=== PATIENT | male | born 1980 | race Caucasian/White ===

== ENCOUNTER 2018-06-06 09:53 | Emergency (ER) | payer MEDICAID, SELFPAY ==
[2018-06-06] VITALS (12 sets, daily range): BP systolic 130–145; BP diastolic 73–80; PULSE 77–137; RESP 12–36; TEMP 37.2–37.4; O2SAT 91–97
--- NOTE | 2018-06-06 10:02 | DI.CT_ITS ---
SYMPTOMS/DIAGNOSIS: ACUTE HEADACHE, ACUTE CONFUSION, HYPERTENSIVE CRANIAL CT: A noncontrast enhanced examination was performed. There is no evidence of an intra or extra-axial hemorrhage, mass or fluid collection. The bahrdwaj/white matter differentiation is intact. The ventricles are normal. There is no evidence of a skull fracture. The paranasal sinuses are normal. There is no evidence of a mastoid effusion. SUMMARY: No acute intracranial abnormality is demonstrated. CTA OF THE NECK AND HEAD: CT angiography was performed with multi slice acquisition and multi planar and 3D reconstruction. The examination was carried out according to the usual protocol with an intravenous administration of 85 cc's of Omnipaque 350. The carotid arteries are normal. The anterior, middle and posterior cerebral arteries as visualized appear intact. The vertebrobasilar system appears intact. SUMMARY: Negative CTA of the neck and head.
--- NOTE | 2018-06-06 10:13 | ED.GENADUL_ITS ---
Discharge Plan Disposition Patient Disposition: HOME Condition: Good Discharge Details Chief Complaint: AMS/LOC Clinical Impression: Conversion disorder, Transient amnesia, Panic attack Primary Care Provider: MAJO NICOLE ED Provider: Sukhdeep Cadet Home Meds and New Rx's Prescriptions: No Action methadone 10 mg/mL Concentrate 90 mg PO DAILY RF: 0 Discharge Instructions Instructions: Panic Attack (ED) Additional Instructions: Please follow-up promptly with your primary care provider on Sunday morning, will be contacted by our mental health specialist for close follow-up next week. Please have a low threshold for prompt return, if you notice any worsening of your symptoms, or any new symptoms such as vomiting, diarrhea, fever, chills, shortness of breath, chest pain, numbness, weakness, or fainting , confusion, altered mental status, amnesia, please return immediately to the emergency department for reevaluation. Please follow up with your primary care provider as soon as possible for reassessment and reevaluation. As always, it was a pleasure participating in your medical care today. Referrals: MAJO NICOLE [Primary Care Provider] - Medical Decision Making This is a 38-year-old male who presents via EMS for panic attack. He was a witness at the local court house. Per EMS he had a panic attack, refused Ativan, came here to the ER. Upon his arrival he was in a slightly catatonic state initially, but then began talking shortly thereafter, at this time he was confused, did not know the year, or other significant pertinent events. Initial physical exam demonstrates minimal abrasion over the forehead, but no evidence of significant trauma or significant neurologic abnormality although the patient does appear confused. The patient was complaining of a headache, but she has no signs of significant nuchal rigidity or meningitis. Shortly thereafter the arrived, his confusion was highlighted even more at that time. She adds to the clinical history and states that he passed out multiple times in the court room, and hit his head multiple times as well. She also states that he has a history of bipolar and yariel, states that he has had episodes similar to this in the past but never this bad with this significant confusion. The denies that he had any complaints of fever, chills, or significant headache prior to the court room incident. She denies any confusion before but does note that he was notably stressed and anxious and nervous over the last few days for this court hearing. The states that he refuses all medications on a regular basis, does not take any medications for this yariel or bipolar. He does occasionally smoke marijuana, but aside for this and methadone she states he has no other meds. Differential is broad and includes traumatic intracranial injury, stress- induced psychosis or conversion, yariel or bipolar, intracranial aneurysm is unlikely but on the differential due to his stress episode and suspected notably elevated blood pressure, and intracranial bleed is suspected secondary to his multiple falls. Patient does not show clinical signs of meningitis on exam, with no fever I doubt encephalitis or signs of vesicles or rash I doubt encephalitis. We will evaluate for other acute pathologies, rehydrate the patient reassessed. 12: 39 Patient's EKG is benign, WBC count is elevated, CT of the head and neck, including noncontrast CT of the head demonstrates no acute process or bleed. Urine drug screen is positive for methadone and THC which the patient and his readily admits to him using on a regular basis. Patient continues to have a mild headache, repeat exam he has worsening of his neck pain with flexion of his hips, differential certainly does include an acute infectious etiology. However with his workup returning am concerned that there might certainly be a psychiatric component more so. With the patient's neck pain headache and other symptoms a lumbar puncture was performed, no complication, the patient tolerated the procedure very well. We did get consent from both his and he. Pending results at this time. I did contact neurology and spoke with Dr. Solitario, I reviewed the case with her, and at this time she does still feel that this may be a psychosis or conversion disorder. The patient continues to be in a mental state that appears to be stuck in 1996. He is no recollection of who Ronnell Longo is, Avery [place], or Y2K. He has understanding and insight acknowledging that his memory is not congruent with what we are saying, however he has no recollection of anything past 1996. Pending LP results, I do feel that the patient would benefit from admission for resolution of his symptoms. I do not feel that this is clinically consistent with transient global amnesia as he does have good insight. Pending LP results we will contact the hospitalist for admission. Recommend psychiatric consult. 1:42 LP results have returned, there is no evidence of meningitis, no significant elevation in WBCs, glucose and protein are normal, results are inconsistent with bacterial or viral meningitis. We did contact the hospitalist and discussed admission, he agrees, the patient agreed initially too, and then on my reassessment roughly 20 minutes later the patient had a complete resolution of his symptoms, he knows all the current videogaHu[employer]y systems, year, important political and social players in today's world. On neurologic reassessment he continues to show no signs of neurologic deficit. The patient feels very well, has no homicidal or suicidal ideations. His mentation is normal and his states that he is back at his baseline. She is very thankful for the care pr ovided here, but he is asking to go home. He feels that he does have an aversion to hospitals in general, stating he would not be beneficial as he has resolution of his symptoms. I did very long and thorough discussion with the patient and his who is at bedside, of note he does acknowledge that he is to her now and recalls multiple previous memories. Through shared decision making process and respecting the wishes of the patient and family, do feel that it is reasonable. We have mandated close follow-up, as well as a low threshold for return. Patient will be following up with his PCP on Sunday, and we will get mental health consult for the patient within the week. With a normal neurologic exam, benign workup, he had a complete resolution of his symptoms I feel it is reasonable for discharge home, with the patient having an excellent understanding of the risks and benefits of this. I have extensively reviewed the treatment plan and discharge instructions with the patient and their family. I have addressed all patient concerns at this time. The patient and family was made aware of what symptoms to monitor for that would warrant a return to the emergency department. Discussed the plan with the patient and family, they demonstrate verbal understanding and agreement with our assessment and plan at this time. Diagnosis conversion disorder EKG 10: 10 Rate 111, intervals normal, sinus tachycardia, no significant ST elevation or depression, mild peaking of T waves in V2 and V3 Procedure: Lumbar Puncture Indication: Altered Mental Status/Headache A time-out was completed verifying correct patient, procedure, site, positioning, and special equipment if applicable. The patient was placed in the LEFT lateral decubitus position in a semi- position with help from the nursing staff. The area was cleansed and draped in usual sterile fashion. 1% lidocaine was used anesthetize the surrounding skin area. A 22-gauge 3.5-inch spinal needle was placed in the L4-L5 interspace. Clear cerebral spinal fluid was obtained. Four tubes were filled with 4 mL of CSF. These were sent for the usual tests, including 1 tube to be held for further analysis if needed. Estimated Blood Loss: 1ml The patient tolerated the procedure well and there were no complications. CRANIAL CT: A noncontrast enhanced examination was performed. There is no evidence of an intra or extra-axial hemorrhage, mass or fluid collection. The bhardwaj/white matter differentiation is intact. The ventricles are normal. There is no evidence of a skull fracture. The paranasal sinuses are normal. There is no evidence of a mastoid effusion. SUMMARY: No acute intracranial abnormality is demonstrated. CTA OF THE NECK AND HEAD: CT angiography was performed with multi slice acquisition and multi planar and 3D reconstruction. The examination was carried out according to the usual protocol with an intravenous administration of 85 cc's of Omnipaque 350. The carotid arteries are normal. The anterior, middle and posterior cerebral arteries as visualized appear intact. The vertebrobasilar system appears intact. SUMMARY: Negative CTA of the neck and head. HPI General Date/Time Provider Initiated Documentation: 06/06/18 09:54 . HPI Narrative: This is a 38-year-old male with no significant past medical history who does take methadone, who presents today for evaluation of panic attack. The patient was a witness at the local court house, while in 1 of the containment rooms he had a panic attack, he refused Ativan at the time, EMS did bring him to the ER. Upon arrival to the ER the patient adopted somewhat of a catatonic state. He is confused, does not know what year it is, does complain of a headache, but certainly does not appear overly anxious. EMS states that this is an acute change that occurred while they were arriving at the ER. Patient has no other complaints. He denies any history of schizophrenia, current IV or illicit drug use, mental disorder, or medical history in general. Patient has no other complaints at this time. He denies taking any substances at the court house or recently. He denies any alcohol use. He denies any recent surgeries. Related Data Home Medications Medication Instructions Recorded Confirmed methadone 90 mg PO DAILY 06/06/18 06/06/18 Allergies Allergy/AdvReac Type Severity Reaction Status Date / Time No Known Allergies Allergy Unverified 06/06/18 10:11 General Stated Complaint: AMS/LOC KAYLENE: 2 Review of Systems Review of Systems All systems reviewed & are unremarkable except as noted in HPI and below PFSH Social History Smoking/Tobacco Use Status: Current every day Tobacco Type: cigarettes Alcohol Intake: never Drug use: Daily Substance use type: marijuana Exam Narrative Exam Narrative: 1.Const: Well-nourished, Well-developed, appearing stated age 2.Eyes: PERRL, no conjunctival injection, and symmetrical lids. 3.ENT: Atraumatic external nose and ears. Moist MM. Neck: Symmetric, trachea midline, No thyromegaly. There is no evidence of raccoon eyes, salazar sign, CSF rhinorrhea, mastoid tenderness, cranial crepitus, hemotympanum, exophthalmos, or hyphema. Small abrasion noted over the forehead. Patient demonstrates intact dentition with no signs of tooth avulsion or fracture, no signs of jaw deformity, no evidence of a LeFort's fracture, with an intact palate, nose and orbital region. There is no evidence of a nasal septal hematoma. No proptosis. Jaw closes symmetrically. Airway is clear. Patient demonstrates good movement of cervical neck. There is no nuchal rigidity, no nuchal tenderness. Patient is able to flex the neck without any difficulty or significant pain. Negative Kernig's and Brudzinski sign. 4.CVS: +S1/S2, No murmurs or gallops. Peripheral pulses 2+ and equal in all extremities. Brisk capillary refill in all extremities. 5.RESP: Unlabored respiratory effort. Clear to auscultation bilaterally. No wheezes rales or rhonchi 6.GI: Soft, Nontender/Nondistended, No hepatosplenomegaly. No guarding or rebound. 7.MSK: Normocephalic/Atraumatic, Extremities w/o deformity or ttp No cyanosis or clubbing, Normal movement of all extremities 8.Skin: Warm, Dry. No rashes or lesions. 9.Neuro: chief controller II-XII grossly intact. Sensation grossly intact, no focal neurologic deficits. All 6 cardinal planes of vision are fully intact. No evidence of rotatory or vertical nystagmus. The patient demonstrated a normal cebwls-hjsb-wouzcx, good dexterity. There was no evidence of dysdiadochokinesia. Patient was able to ambulate without difficulty. There was no wide-based gait. [id number] normal on testing. Sensation was intact bilaterally as well as muscle strength bilaterally for all extremities. Patient was able to verbalize butter cup with no slurring, or miss pronunciation. 10.Psych: (AAO) x1, patient is confused and thinks it is 1996. His is at bedside and he thinks that she is his jacquard card lacer (whom she was years ago, but is now his ). He does not appear overly anxious, he has no pressured speech. Is able to verbalize all words well. Course Vital Signs Temperature 37.4 C 06/06/18 09:55 Pulse 99 H 06/06/18 09:55 Respiratory Rate 14 06/06/18 09:55 Blood Pressure 138/78 06/06/18 09:55 Pulse Oximetry 94 L 06/06/18 09:55 Temperature 37.4 C 06/06/18 09:55 Temperature Source Temporal Artery Scan 06/06/18 09:55 Pulse 99 H 06/06/18 09:55 Respiratory Rate 14 06/06/18 09:55 Blood Pressure 138/78 06/06/18 09:55 Blood Pressure Position Sitting 06/06/18 09:55 Pulse Oximetry 94 L 06/06/18 09:55 Oxygen Delivery Method Room Air 06/06/18 09:55 Oxygen Flow Rate 0 06/06/18 09:55 Pain Level 0 06/06/18 09:55
[2018-06-06 10:19] LABS: BE (Venous) 1.6 mmol/L (-3-3); HCO3 (Venous) 27 mmol/L (22-28); O2 Sat (Venous) 65 % (70-80); TCO2 (Venous) 24 mmol/L (22-29); pCO2 (Venous) 44 mm/Hg (34-47); pH (Venous) 7.39 (7.32-7.43); pO2 (Venous) 32 mm/Hg (28-44)
[2018-06-06 10:22] LABS: Abs Immature Grans 0.06 k/cumm (0.0-0.09); Absolute Basophil Count 0.03 k/cumm (0.0-0.2); Absolute Eosinophil Count 0.03 k/cumm (0.0-0.7); Absolute Lymphocyte Count 1.99 k/cumm (1.2-3.4); Absolute Monocyte Count 0.77 k/cumm (0.11-0.7); Absolute Neutrophil Count 13.55 k/cumm (1.2-6.7); Basophils % 0.2; Eosinophils % 0.2; HCT 44.5 % (40.0-50.0); HGB 15.1 g/dL (13.5-17.5); Immature Grans % 0.4; Lymphocytes % 12.1; Mean Corp. HGB Concentration 33.9 g/dL (32.0-36.0); Mean Corpuscular Hemoglobin 28.8 pg (27.0-33.0); Mean Corpuscular Volume 84.8 fL (80-95); Mean Platelet Volume 10.2 fL (8.0-11.0); Monocytes % 4.7; Neutrophils % 82.4; Platelet Count 376 x1000/uL (130-400); RBC 5.25 m/cumm (4.50-6.00); RBC Distribution Width 13.3 % (11.8-14.1); White Blood Cell Count 16.45 k/cumm (4.4-10.8)
[2018-06-06] MEDS: Omnipaque 350 MG/ML 100 ML BTL IJ (10:39)
[2018-06-06] MEDS: Acetaminophen 500 MG TAB 1000 MG PO (10:41)
[2018-06-06 10:44] LABS: Salicylate 6.1 mg/dL (2.8-20.0)
[2018-06-06 10:45] LABS: ALT 21 U/L (12-78); AST 17 U/L (15-37); Albumin 4.6 g/dL (3.4-5.0); Alkaline Phosphatase 76 U/L (46-116); Anion Gap 13.4 mmol/L (3-11); BUN 13 mg/dL (7-18); Bilirubin, Total 0.3 mg/dL (0.2-1.0); CO2 24.6 mmol/L (21.0-32.0); CREATININE 0.93 mg/dL (0.70-1.30); Calcium 9.5 mg/dL (8.5-10.1); Chloride 102 mmol/L (98-107); Glucose 145 mg/dL (70-100); Potassium 3.9 mmol/L (3.5-5.1); Sodium 140 mmol/L (136-145); Total Protein 7.8 g/dL (6.4-8.2)
[2018-06-06] MEDS: Normal Saline 1,000 ML 1000 ML IV ×2 (10:48→11:22)
[2018-06-06 10:49] LABS: Ammonia < 10 umol/L (11-32)
[2018-06-06 10:56] LABS: Acetaminophen < 2 ug/mL (10-30); ETHANOL BLOOD < 3.0 mg/dL (<3)
[2018-06-06 11:20] LABS: *AMPHETAMINES SCREEN URINE Negative (Negative); *BARBITURATES SCREEN URINE Negative (Negative); *BENZODIAZEPINES SCREEN URINE Negative (Negative); Cannabinoids THC POSITIVE (Negative); Cocaine Screen,Urine Negative (Negative); METHADONE URINE SCREEN POSITIVE (Negative); OPIATES URINE SCREEN Negative (Negative)
[2018-06-06 11:25] LABS: Tricyclic Antidepressants Negative (Negative)
[2018-06-06] MEDS: LORazepam 2 MG/ML VIAL (12:15)
[2018-06-06 13:14] LABS: Clarity Clear; RBC 0 /mm3 (0-5); Tube # 4; WBC 1 /mm3 (0-5); Xanthochromia Absent
[2018-06-06 13:22] LABS: Total Protein (CSF) 23 mg/dL (15-45)
[2018-06-06 13:39] LABS: Glucose (CSF) 81 mg/dL (40-70)
--- NOTE | 2018-06-07 08:14 | PDOC.ERCMPRO ---
Care Management Progress Note 06/07-Dr. Cadet requested assistance with a PCP f/u ([facility]) in one week for AMS. Dr. Cadet also requesting assistance with a f/u for psychiatry. Called [facility] and spoke with Meena. Meena scheduled Jeb for Sunday, 06/14 at 2:[address] Dea Mireles (Dr. Hamlin is out of office). Meena stated that they would scheduled Jeb to see their behavioral health specialist as well as their new psychiatric nurse practitioner. Called and left message on Jeb's phone for the f/u appt.
--- NOTE | 2018-06-07 08:17 | CMPROGNOTE_ITS ---
Care Management Progress Note 06/07-Dr. Cadet requested assistance with a PCP f/u ([facility]) in one week for AMS. Dr. Cadet also requesting assistance with a f/u for psychiatry. Called [facility] and spoke with Meena. Meena scheduled Jeb for Sunday, 06/14 at 2:[address] Dea Mireles (Dr. Hamlin is out of office). Meena stated that they would scheduled Jeb to see their behavioral health specialist as well as their new psychiatric nurse practitioner. Called and left message on Jeb's phone for the f/u appt.
[2018-06-07 15:03] LABS: VDRL, CSF Negative (Negative)
[2018-06-08 22:04] LABS: Cytomegalovirus PCR Negative (Negative); Specimen Source CSF
[2018-06-09 17:56] LABS: Adenovirus PCR Negative (Negative); Specimen Source CSF
[2018-06-10 12:56] LABS: Result Negative (Negative); Specimen Source CSF
[2018-06-10 23:52] LABS: Specimen Source CSF; West Nile Virus PCR Negative (Negative)
== END 2018-06-06 14:40 | disposition home or self-care (01) ==
PROVIDERS: Emergency Provider Student in an Organized Health Care Education/Training Program; PCP Family Medicine
DX: F44.9 Dissociative and conversion disorder, unspecified (principal); G45.4 Transient global amnesia; F41.9 Anxiety disorder, unspecified
CPT/HCPCS: 36415; 70496; 70498; 80053; 80307; 82805; 82945; 87116; 87206; 87798; 87799; 89050; 89051; 93005; 96361; 96374; 99285; 70450; 80320; 80329; 82140; 84157; 85025; 86592; 87070; 87205; 87496; 93010; J2060; J3490

== ENCOUNTER 2018-06-10 08:30 | Emergency (ER) | payer MEDICAID, SELFPAY ==
[2018-06-10 08:33] VITALS: BP 150/96; PULSE 93; RESP 20; TEMP 36.8; O2SAT 98
[2018-06-10 08:40] VITALS: RESP 20
--- NOTE | 2018-06-10 10:50 | W.ED.GENAD ---
Discharge Plan Disposition Patient Disposition: HOME Condition: Stable Discharge Details Chief Complaint: AMS/LOC Clinical Impression: Concussion Primary Care Provider: MAJO NICOLE ED Provider: Ciarra West Home Meds and New Rx's Prescriptions: New divalproex [Depakote] 250 mg tablet,delayed release (DR/EC) 250 mg PO BID Qty: 13 RF: 0 divalproex [Depakote] 500 mg tablet,delayed release (DR/EC) 500 mg PO BID Qty: 14 RF: 0 Continued methadone 10 mg/mL Concentrate 90 mg PO DAILY RF: 0 Discharge Instructions Instructions: Concussion (ED) Additional Instructions: Please return immediately to the emergency department if you develop any new or worsening symptoms or if you become otherwise concerned. It is extremely important that you attend your scheduled appointment with your primary care doctor this Sunday as planned, and also that she make an appointment to be seen by a neurologist as soon as possible as well. Referrals: MAJO NICOLE [Primary Care Provider] - Barbara Branch MD [[facility] STAFF PHYSICIAN] - Medical Decision Making Jeb Noriega is a 38-year-old man with history of bipolar, PTSD, anxiety who presented to the emergency department with personality changes after being seen here for apparent anxiety related syncope and subsequent head injury. On exam patient is well and nontoxic appearing. His speech is very mildly pressured, but otherwise psychiatric exam is normal. Neurologic exam is nonfocal. Patient without headache or other somatic complaints. Concern for likely postconcussion related symptoms. Exam/history is not consistent with acute intracranial emergency, toxic/metabolic etiology, infection, suicidality, risk to self or others I reviewed the patient's chart and did discuss the patient presentation results with Dr. Solitario of neurology, who agreed that percentage personality changes are likely related to concussion and patient with baseline mental health problems. She recommended Depakote 250 mg twice daily for 1 week followed by 500 mg twice daily, as well as outpatient follow-up with PCP, neurology, and mental health. Patient reports that he has an appointment with his PCP on 06/14, with plan to schedule mental health visit as facilitated by his PCP. Patient placed on list for neurology outpatient follow-up. I had a lengthy discussion with the patient regarding return to emergency department precautions, and importance of outpatient follow-up with his PCP, mental health, neurology. Patient verbalized understanding of the plan and was amenable, as was his . All questions were answered. Medical Records Medical records reviewed: Yes I reviewed the patient's medical records. HPI General Mode of arrival: ambulatory. Date/Time Provider Initiated Documentation: 06/10/18 08:44. Limitations to Documentation: no limitations. Information obtained by: patient, family, RN notes reviewed and old records reviewed. HPI Narrative: Jeb Noriega is a 38-year-old man with history of bipolar disorder, PTSD presenting to the emergency department with personality change. Patient is accompanied by his who also provides a history. Patient was seen here 06/06/18 for evaluation. Patient has report that patient has a history of anxiety attacks,, and patient had an anxiety attack at home and began hyperventilating, at which point he passed out and his head hit the table in front of him. His loss of consciousness was brief lasting a minute or so, but when he came to he again passed out and hit his head on the table. In the emergency department patient had CT of the head, CTA of the head and neck, all of which were negative. Patient's reports that directly after the episode at home and while he was in the emergency department initially, his personality seemed changed from baseline. He seemed somewhat hyperactive and with different judgment than usual to her, and she reports that he has seemed nothing like himself in terms of personality since the 2 episodes of hitting his head at home. She reports that there has essentially been no change control analyst the past few days, and brought him back for further evaluation. Patient reports that he feels fine, and thinks that he has just been pushing himself too hard. 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 He reports that he was having headaches after discharge in the emergency department, but has had no headache today. He states that he has been eating and drinking as usual without vomiting. He denies having any pain, fevers, rash, focal weakness. Patient reports that he feels somewhat nervous and anxious, but otherwise feels at baseline. He states that his sleep has been normal. His reports that she is not afraid for his safety, and he has not seemed to be a risk to himself or to others. She denies any aggression. Patient denies suicidality or homicidality. No hallucinations. Patient reports that she has never seen him in his current state of mind in the past. Related Data Home Medications Medication Instructions Recorded Confirmed methadone 90 mg PO DAILY 06/06/18 06/10/18 divalproex [Depakote] 250 mg PO BID #13 tab 06/10/18 divalproex [Depakote] 500 mg PO BID #14 tab 06/10/18 Previous Rx's Medication Instructions Recorded divalproex [Depakote] 250 mg PO BID #13 tab 06/10/18 divalproex [Depakote] 500 mg PO BID #14 tab 06/10/18 Allergies Allergy/AdvReac Type Severity Reaction Status Date / Time No Known Allergies Allergy Unverified 06/10/18 08:40 General Stated Complaint: AMS/LOC KAYLENE: 2 Review of Systems Review of Systems Constitutional: denies fevers Eyes: denies eye pain ENT: denies facial pain, dental pain, sore throat Cardiovascular: denies chest pain Respiratory: denies SOB, cough GI: denies abdominal pain, vomiting, diarrhea : denies flank pain MSK: denies back pain, neck pain, arthralgias, myalgias Skin: denies rash Neuro: denies headaches, numbness, weakness Psych: Denies suicidality, homicidality, hallucinations [facility] Medical History Head injury with loss of consciousness (Acute) Post traumatic stress disorder (Acute) Anxiety (Chronic) Bipolar disorder (Chronic) Social History Smoking/Tobacco Use Status: Current every day Tobacco Type: cigarettes Alcohol Intake: never Drug use: Daily Substance use type: former substance user and marijuana Exam Narrative Exam Narrative: Constitutional: well and [id number], pleasant, speech is mildly pressured but otherwise conversing normally HENT: head atraumatic/normocephalic/normal inspection, mucous membranes moist Eyes: conjunctiva normal, sclera normal, pupils 3mm b/l, equal and reactive to light and accommodation, extraocular movements intact, no nystagmus Neck: no stridor, normal ROM, trachea midline Chest: normal inspection Resp: normal work of breathing, LCTAB Cardio: normal rate, normal rhythm, no murmur appreciated Back: normal inspection, no rash Skin: warm, dry, normal color, no rash Neuro: alert and oriented x3, cranial nerves II through XII intact, motor 5 out of 5 throughout, normal gait, normal tone Ext: no edema Psych: Somewhat anxious mood, normal affect, normal behavior, no apparent hallucinations, no suicidality Course Vital Signs Temperature 36.8 C 06/10/18 08:33 Pulse 93 H 06/10/18 08:33 Respiratory Rate 20 06/10/18 08:33 Blood Pressure 150/96 H 06/10/18 08:33 Pulse Oximetry 98 06/10/18 08:33 Temperature 36.8 C 06/10/18 08:33 Temperature Source Temporal Artery Scan 06/10/18 08:33 Pulse 93 H 06/10/18 08:33 Respiratory Rate 20 06/10/18 08:40 Respiratory Effort Non-Labored 06/10/18 08:40 Respiratory Depth Normal 06/10/18 08:40 Respiratory Pattern Normal 06/10/18 08:40 Blood Pressure 150/96 H 06/10/18 08:33 Blood Pressure Position Sitting 06/10/18 08:33 Pulse Oximetry 98 06/10/18 08:33 Oxygen Delivery Method Room Air 06/10/18 08:33 Oxygen Flow Rate 0 06/10/18 08:33 Pain Level 0 06/10/18 08:33
[2018-06-10] MEDS: LORazepam 1 MG TAB PO (11:16)
--- NOTE | 2018-06-10 11:24 | ED.GENADUL_ITS ---
Discharge Plan Disposition Patient Disposition: HOME Condition: Stable Discharge Details Chief Complaint: AMS/LOC Clinical Impression: Concussion Primary Care Provider: MAJO NICOLE ED Provider: Ciarra West Home Meds and New Rx's Prescriptions: New divalproex [Depakote] 250 mg tablet,delayed release (DR/EC) 250 mg PO BID Qty: 13 RF: 0 divalproex [Depakote] 500 mg tablet,delayed release (DR/EC) 500 mg PO BID Qty: 14 RF: 0 Continued methadone 10 mg/mL Concentrate 90 mg PO DAILY RF: 0 Discharge Instructions Instructions: Concussion (ED) Additional Instructions: Please return immediately to the emergency department if you develop any new or worsening symptoms or if you become otherwise concerned. It is extremely important that you attend your scheduled appointment with your primary care doctor this Sunday as planned, and also that she make an appointment to be seen by a neurologist as soon as possible as well. Referrals: MAJO NICOLE [Primary Care Provider] - Barbara Branch MD [[facility] STAFF PHYSICIAN] - Medical Decision Making Jeb Noriega is a 38-year-old man with history of bipolar, PTSD, anxiety who presented to the emergency department with personality changes after being seen here for apparent anxiety related syncope and subsequent head injury. On exam patient is well and nontoxic appearing. His speech is very mildly pressured, but otherwise psychiatric exam is normal. Neurologic exam is nonfocal. Patient without headache or other somatic complaints. Concern for likely postconcussion related symptoms. Exam/history is not consistent with acute intracranial emergency, toxic/metabolic etiology, infection, suicidality, risk to self or others I reviewed the patient's chart and did discuss the patient presentation results with Dr. Solitario of neurology, who agreed that percentage personality changes are likely related to concussion and patient with baseline mental health problems. She recommended Depakote 250 mg twice daily for 1 week followed by 500 mg twice daily, as well as outpatient follow-up with PCP, neurology, and mental health. Patient reports that he has an appointment with his PCP on 06/14, with plan to schedule mental health visit as facilitated by his PCP. Patient placed on list for neurology outpatient follow-up. I had a lengthy discussion with the patient regarding return to emergency department precautions, and importance of outpatient follow-up with his PCP, mental health, neurology. Patient verbalized understanding of the plan and was amenable, as was his . All questions were answered. Medical Records Medical records reviewed: Yes I reviewed the patient's medical records. HPI General Mode of arrival: ambulatory . Date/Time Provider Initiated Documentation: 06/10/18 08:44 . Limitations to Documentation: no limitations . Information obtained by: patient, family, RN notes reviewed and old records reviewed . HPI Narrative: Jeb Noriega is a 38-year-old man with history of bipolar disorder, PTSD presenting to the emergency department with personality change. Patient is accompanied by his who also provides a history. Bettye funes was seen here 06/06/18 for evaluation. Patient has report that patient has a history of anxiety attacks,, and patient had an anxiety attack at home and began hyperventilating, at which point he passed out and his head hit the table in front of him. His loss of consciousness was brief lasting a minute or so, but when he came to he again passed out and hit his head on the table. In the emergency department patient had CT of the head, CTA of the head and neck, all of which were negative. Patient's reports that directly after the episode at home and while he was in the emergency department initially, his personality seemed changed from baseline. He seemed somewhat hyperactive and with different judgment than usual to her, and she reports that he has seemed nothing like himself in terms of personality since the 2 episodes of hitting his head at home. 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 Patient reports that he feels fine, and thinks that he has just been pushing himself too hard. 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 He reports that he was having headaches after discharge in the emergency department, but has had no headache today. He states that he has been eating and drinking as usual without vomiting. He denies having any pain, fevers, rash, focal weakness. Patient reports that he feels somewhat nervous and anxious, but otherwise feels at baseline. He states that his sleep has been normal. His reports that she is not afraid for his safety, and he has not seemed to be a risk to himself or to others. She denies any aggression. Patient denies suicidality or homicidality. No hallucinations. Patient reports that she has never seen him in his current state of mind in the past. Related Data Home Medications Medication Instructions Recorded Confirmed methadone 90 mg PO DAILY 06/06/18 06/10/18 divalproex [Depakote] 250 mg PO BID #13 tab 06/10/18 divalproex [Depakote] 500 mg PO BID #14 tab 06/10/18 Previous Rx's Medication Instructions Recorded divalproex [Depakote] 250 mg PO BID #13 tab 06/10/18 divalproex [Depakote] 500 mg PO BID #14 tab 06/10/18 Allergies Allergy/AdvReac Type Severity Reaction Status Date / Time No Known Allergies Allergy Unverified 06/10/18 08:40 General Stated Complaint: AMS/LOC KAYLENE: 2 Review of Systems Review of Systems Constitutional: denies fevers Eyes: denies eye pain ENT: denies facial pain, dental pain, sore throat Cardiovascular: denies chest pain Respiratory: denies SOB, cough GI: denies abdominal pain, vomiting, diarrhea : denies flank pain MSK: denies back pain, neck pain, arthralgias, myalgias Skin: denies rash Neuro: denies headaches, numbness, weakness Psych: Denies suicidality, homicidality, hallucinations ON LICENSE OF [facility] Medical History Head injury with loss of consciousness (Acute) Post traumatic stress disorder (Acute) Anxiety (Chronic) Bipolar disorder (Chronic) Social History Smoking/Tobacco Use Status: Current every day Tobacco Type: cigarettes Alcohol Intake: never Drug use: Daily Substance use type: former substance user and marijuana Exam Narrative Exam Narrative: Constitutional: well and [id number], pleasant, speech is mildly pressured but otherwise conversing normally HENT: head atraumatic/normocephalic/normal inspection, mucous membranes moist Eyes: conjunctiva normal, sclera normal, pupils 3mm b/l, equal and reactive to light and accommodation, extraocular movements intact, no nystagmus Neck: no stridor, normal ROM, trachea midline Chest: normal inspection Resp: normal work of breathing, LCTAB Cardio: normal rate, normal rhythm, no murmur appreciated Back: normal inspection, no rash Skin: warm, dry, normal color, no rash Neuro: alert and oriented x3, cranial nerves II through XII intact, motor 5 out of 5 throughout, normal gait, normal tone Ext: no edema Psych: Somewhat anxious mood, normal affect, normal behavior, no apparent hallucinations, no suicidality Course Vital Signs Temperature 36.8 C 06/10/18 08:33 Pulse 93 H 06/10/18 08:33 Respiratory Rate 20 06/10/18 08:33 Blood Pressure 150/96 H 06/10/18 08:33 Pulse Oximetry 98 06/10/18 08:33 Temperature 36.8 C 06/10/18 08:33 Temperature Source Temporal Artery Scan 06/10/18 08:33 Pulse 93 H 06/10/18 08:33 Respiratory Rate 20 06/10/18 08:40 Respiratory Effort Non-Labored 06/10/18 08:40 Respiratory Depth Normal 06/10/18 08:40 Respiratory Pattern Normal 06/10/18 08:40 Blood Pressure 150/96 H 06/10/18 08:33 Blood Pressure Position Sitting 06/10/18 08:33 Pulse Oximetry 98 06/10/18 08:33 Oxygen Delivery Method Room Air 06/10/18 08:33 Oxygen Flow Rate 0 06/10/18 08:33 Pain Level 0 06/10/18 08:33
[2018-06-10] MEDS: Divalproex 250 MG TABEC PO (12:33)
--- NOTE | 2018-06-11 10:21 | PDOC.ERCMPRO ---
Care Management Progress Note 06/11-Dr. Leandra West requested assistance with a neurology f/u, first available, for post concussion. Referral faxed to Neurology this am.
== END 2018-06-10 12:36 | disposition home or self-care (01) ==
PROVIDERS: Emergency Provider Student in an Organized Health Care Education/Training Program; PCP Family Medicine
DX: S06.0X9A Concussion with loss of consciousness of unspecified duration, initial encounter (principal); W18.39XA Other fall on same level, initial encounter; R55 Syncope and collapse; F31.9 Bipolar disorder, unspecified; F43.10 Post-traumatic stress disorder, unspecified; F41.9 Anxiety disorder, unspecified
CPT/HCPCS: 99283

== ENCOUNTER 2019-10-14 02:09 | Outpatient (CLI) | payer MEDICAID, SELFPAY ==
[2019-10-14 08:02] LABS: Platelet Count 327 x1000/uL (130-400)
[2019-10-14 08:14] LABS: VALPROIC ACID 59.6 ug/mL (50-100)
[2019-10-14 08:58] LABS: ALT 21 U/L (16-63); AST 12 U/L (15-37); Albumin 4.2 g/dL (3.4-5.0); Alkaline Phosphatase 54 U/L (46-116); BUN 11 mg/dL (7-18); Bilirubin, Total 0.4 mg/dL (0.2-1.0); CREATININE 0.79 mg/dL (0.70-1.30); Calcium 9.9 mg/dL (8.5-10.1); Chloride 103 mmol/L (98-107); Glucose 117 mg/dL (74-106); Sodium 140 mmol/L (136-145); Total Protein 7.2 g/dL (6.4-8.2)
== END 2019-10-14 02:29 ==
PROVIDERS: PCP Family Medicine; Visit Provider Nurse Practitioner Psychiatric/Mental Health
DX: F25.0 Schizoaffective disorder, bipolar type (principal)
CPT/HCPCS: 36415; 80048; 80076; 80164; 85049

== ENCOUNTER 2020-06-04 10:22 | Outpatient (REF) | payer MEDICAID, SELFPAY ==
[2020-06-04 15:39] LABS: ALT 26 U/L (16-63); AST 15 U/L (15-37); Albumin 4.1 g/dL (3.4-5.0); Alkaline Phosphatase 58 U/L (46-116); Anion Gap 12.4 mmol/L (3-11); BUN 14 mg/dL (7-18); Bilirubin, Direct 0.1 mg/dL (0.0-0.2); Bilirubin, Total 0.4 mg/dL (0.2-1.0); CO2 25.6 mmol/L (21.0-32.0); CREATININE 0.9 mg/dL (0.70-1.30); Calcium 9.3 mg/dL (8.5-10.1); Chloride 103 mmol/L (98-107); Glucose 94 mg/dL (74-106); Potassium 4.5 mmol/L (3.5-5.1); Sodium 141 mmol/L (136-145); Total Protein 7.1 g/dL (6.4-8.2)
[2020-06-04 15:42] LABS: VALPROIC ACID 58.5 ug/mL (50-100)
[2020-06-04 16:35] LABS: Calculated LDL 175 mg/dL (<100); Cholesterol 228 mg/dL (<200); HDL Cholesterol 38 mg/dL (40-60); Triglyceride 79 mg/dL (<150)
[2020-06-04 21:31] LABS: Abs Immature Grans 0.05 10^3/uL (0.0-0.06); Absolute Basophil Count 0.07 10^3/uL (0.0-0.2); Absolute Eosinophil Count 0.16 10^3/uL (0.0-0.7); Absolute Lymphocyte Count 4.05 10^3/uL (1.2-3.4); Absolute Monocyte Count 0.62 10^3/uL (0.1-0.8); Absolute Neutrophil Count 6.72 10^3/uL (1.2-6.7); Basophils % 0.6; Eosinophils % 1.4; HCT 45.2 % (40.0-50.0); HGB 14.7 g/dL (13.5-17.5); Immature Grans % 0.4; Lymphocytes % 34.7; MCH 28.9 pg (27.0-33.0); MCHC 32.5 % (32.0-36.0); MCV 88.8 fL (80-95); MPV 11.1 fL (8.0-11.0); Monocytes % 5.3; Neutrophils % 57.6; Nucleated RBC 0 %; Platelet Count 326 10^3/uL (130-400); RBC 5.09 10^6/uL (4.36-5.78); RDW 13.3 % (11.8-14.1); RDW-SD 43.7 fL; WBC 11.67 10^3/uL (4.4-10.8)
[2020-06-04 22:25] LABS: Diff Comment Agrees w/ Instrument; RBC Morphology Normal
== END 2020-06-04 10:23 | disposition home or self-care (01) ==
LOC: NCHCN 10:22
PROVIDERS: PCP Family Medicine; Visit Provider Nurse Practitioner Family
DX: F25.0 Schizoaffective disorder, bipolar type (principal); F31.10 Bipolar disorder, current episode manic without psychotic features, unspecified; Z51.81 Encounter for therapeutic drug level monitoring; Z79.899 Other long term (current) drug therapy; Z13.220 Encounter for screening for lipoid disorders; D72.829 Elevated white blood cell count, unspecified
CPT/HCPCS: 80053; 80061; 80076; 80164; 85025

== ENCOUNTER 2020-10-26 18:11 | Outpatient (REF) | payer MEDICAID, SELFPAY ==
[2020-10-26 20:46] LABS: ALT 20 U/L (16-63); AST 13 U/L (15-37); Albumin 4.4 g/dL (3.4-5.0); Alkaline Phosphatase 41 U/L (46-116); Anion Gap 10.2 mmol/L (3-11); BUN 17 mg/dL (7-18); Bilirubin, Total 0.4 mg/dL (0.2-1.0); CO2 29.8 mmol/L (21.0-32.0); CREATININE 0.9 mg/dL (0.70-1.30); Calcium 9.2 mg/dL (8.5-10.1); Calculated LDL 156 mg/dL (<100); Chloride 104 mmol/L (98-107); Cholesterol 212 mg/dL (<200); Glucose 62 mg/dL (74-106); HDL Cholesterol 38 mg/dL (40-60); Potassium 4.3 mmol/L (3.5-5.1); Sodium 144 mmol/L (136-145); Total Protein 6.9 g/dL (6.4-8.2); Triglyceride 92 mg/dL (<150)
[2020-10-26 22:23] LABS: VALPROIC ACID 31.8 ug/mL (50-100)
== END 2020-10-26 18:12 | disposition home or self-care (01) ==
LOC: NCHCN ADD 18:11
PROVIDERS: PCP Family Medicine; Visit Provider Nurse Practitioner Family
DX: F31.10 Bipolar disorder, current episode manic without psychotic features, unspecified (principal); F17.210 Nicotine dependence, cigarettes, uncomplicated; F11.11 Opioid abuse, in remission; Z51.81 Encounter for therapeutic drug level monitoring; Z79.899 Other long term (current) drug therapy
CPT/HCPCS: 80053; 80061; 80164

== ENCOUNTER 2022-03-10 10:27 | Outpatient (REF) | payer MEDICAID, SELFPAY ==
[2022-03-10 18:18] LABS: Abs Immature Grans 0.04 10^3/uL (0.0-0.06); Absolute Basophil Count 0.06 10^3/uL (0.0-0.2); Absolute Eosinophil Count 0.17 10^3/uL (0.0-0.7); Absolute Lymphocyte Count 3.57 10^3/uL (1.2-3.4); Absolute Monocyte Count 0.74 10^3/uL (0.1-0.8); Absolute Neutrophil Count 5.32 10^3/uL (1.2-6.7); Basophils % 0.6; Eosinophils % 1.7; HGB 14.8 g/dL (13.5-17.5); Immature Grans % 0.4; Lymphocytes % 36.1; MCH 27.8 pg (27.0-33.0); MCHC 31.5 % (32.0-36.0); MCV 88 fL (80-95); MPV 11.1 fL (8.0-11.0); Monocytes % 7.5; Neutrophils % 53.7; Platelet Count 357 10^3/uL (130-400); RBC 5.33 10^6/uL (4.36-5.78); RDW 12.7 % (11.8-14.1); RDW-SD 41.4 fL
[2022-03-10 18:33] LABS: ALT 36 U/L (16-63); AST 27 U/L (15-37); Albumin 3.9 g/dL (3.4-5.0); Alkaline Phosphatase 80 U/L (46-116); Anion Gap 8.8 mmol/L (3-11); BUN 20 mg/dL (7-18); Bilirubin, Total 0.2 mg/dL (0.2-1.0); CO2 27.2 mmol/L (21.0-32.0); CREATININE 0.8 mg/dL (0.70-1.30); Calcium 9.4 mg/dL (8.5-10.1); Calculated LDL 157 mg/dL (<100); Chloride 105 mmol/L (98-107); Cholesterol 211 mg/dL (<200); Estimated GFR 114.74 (mL/min/1.73m2); Glucose 113 mg/dL (74-106); HDL Cholesterol 39 mg/dL (40-60); Potassium 4.7 mmol/L (3.5-5.1); Sodium 141 mmol/L (136-145); Total Protein 7.3 g/dL (6.4-8.2); Triglyceride 79 mg/dL (<150)
== END 2022-03-10 10:28 | disposition home or self-care (01) ==
LOC: NCHCN 10:27
PROVIDERS: PCP Family Medicine; Visit Provider Nurse Practitioner Family
DX: D72.829 Elevated white blood cell count, unspecified (principal); Z13.220 Encounter for screening for lipoid disorders; Z13.228 Encounter for screening for other metabolic disorders; Z00.00 Encounter for general adult medical examination without abnormal findings
CPT/HCPCS: 80053; 80061; 85025

== ENCOUNTER 2022-11-07 19:45 | Outpatient (REF) | payer MEDICAID, SELFPAY ==
[2022-11-07 21:06] LABS: Abs Immature Grans 0.03 10^3/uL (0.0-0.06); Absolute Basophil Count 0.06 10^3/uL (0.0-0.2); Absolute Eosinophil Count 0.13 10^3/uL (0.0-0.7); Absolute Lymphocyte Count 4.51 10^3/uL (1.2-3.4); Absolute Monocyte Count 0.63 10^3/uL (0.1-0.8); Absolute Neutrophil Count 5.69 10^3/uL (1.2-6.7); Basophils % 0.5; Eosinophils % 1.2; HCT 44.2 % (40.0-50.0); HGB 14.7 g/dL (13.5-17.5); Immature Grans % 0.3; Lymphocytes % 40.8; MCH 28.7 pg (27.0-33.0); MCHC 33.3 % (32.0-36.0); MCV 86 fL (80-95); MPV 11.2 fL (8.0-11.0); Monocytes % 5.7; Neutrophils % 51.5; Platelet Count 297 10^3/uL (130-400); RBC 5.13 10^6/uL (4.36-5.78); RDW 12.9 % (11.8-14.1); RDW-SD 40.6 fL; WBC 11.05 10^3/uL (4.4-10.8)
[2022-11-07 21:25] LABS: TSH (W/Ref FT4) 1.45 uIU/mL (0.36-3.74)
== END 2022-11-07 19:46 | disposition home or self-care (01) ==
LOC: NCHCN 19:45
PROVIDERS: PCP Family Medicine; Visit Provider Family Medicine
DX: R53.83 Other fatigue (principal)
CPT/HCPCS: 84443; 85025

== ENCOUNTER 2023-11-06 14:48 | Outpatient (REF) | payer MEDICAID, SELFPAY ==
[2023-11-06 18:10] LABS: ALT 32 U/L (16-63); AST 19 U/L (15-37); Albumin 4.3 g/dL (3.4-5.0); Alkaline Phosphatase 59 U/L (46-116); Anion Gap 8.4 mmol/L (3-11); BUN 16 mg/dL (7-18); Bilirubin, Total 0.21 mg/dL (0.2-1.0); CO2 29.6 mmol/L (21.0-32.0); CREATININE 0.9 mg/dL (0.70-1.30); Calcium 9.4 mg/dL (8.5-10.1); Calculated LDL 160 mg/dL (<100); Chloride 103 mmol/L (98-107); Cholesterol 211 mg/dL (<200); Estimated GFR 110.04 (mL/min/1.73m2); Glucose 105 mg/dL (74-106); HDL Cholesterol 43 mg/dL (40-60); Potassium 4.5 mmol/L (3.5-5.1); Sodium 141 mmol/L (136-145); Total Protein 7.3 g/dL (6.4-8.2); Triglyceride 44 mg/dL (<150)
[2023-11-10 16:35] LABS: Testosterone, Total 596 ng/dL (240-950)
== END 2023-11-06 14:49 | disposition home or self-care (01) ==
LOC: NCHCN 14:48
PROVIDERS: PCP Family Medicine; Visit Provider Family Medicine
DX: Z79.899 Other long term (current) drug therapy (principal); E78.5 Hyperlipidemia, unspecified
CPT/HCPCS: 80053; 80061; 84403